=== PATIENT | female | born 1990 | race Caucasian/White ===

== ENCOUNTER 2017-07-14 09:30 | Emergency (ER) | payer OTHER ==
[2017-07-14 09:33] VITALS: PULSE 117; RESP 18; O2SAT 98; BMI 30.2
--- NOTE | 2017-07-14 10:58 | C.PDOC ---
Time Seen by Provider: 07/14/17 10:04 Chief Complaint (Nursing): Cough, Cold, Congestion History Per: Patient, Family Onset/Duration Of Symptoms: Days (4) Current Symptoms Are (Timing): Still Present Associated Symptoms: Fever, Sore Throat, Cough (mild), Nasal Congestion Severity: Moderate Recent travel outside of the [place]: No Additional History Per: Prior Records Past Medical History Reviewed: Historical Data, Nursing Documentation, Vital Signs Vital Signs: Last Vital Signs Temp 97.7 F 07/14/17 09:33 Pulse 117 H 07/14/17 09:33 Resp 18 07/14/17 09:33 BP 114/81 07/14/17 09:33 Pulse Ox 98 07/14/17 09:33 - Medical History PMH: No Chronic Diseases Other PMH: Pt is 21 weeks Family History: States: Unknown Family Hx - Social History Hx Tobacco Use: No Hx Alcohol Use: No Hx Substance Use: No - Immunization History Hx Tetanus Toxoid Vaccination: No Hx Influenza Vaccination: No Hx Pneumococcal Vaccination: No Review Of Systems Except As Marked, All Systems Reviewed And Found Negative. Constitutional: Positive for: Fever, Malaise ENT: Positive for: Nose Congestion, Throat Pain Cardiovascular: Negative for: Chest Pain Respiratory: Negative for: Shortness of Breath, Hemoptysis Genitourinary: Positive for: Pelvic Pain (on/off). Negative for: Dysuria, Vaginal Bleeding Musculoskeletal: Negative for: Neck Pain Skin: Negative for: Rash Neurological: Negative for: Weakness, Numbness, Seizures, Altered Mental Status Physical Exam - Physical Exam Appears: Non-toxic, No Acute Distress Skin: Normal Color, Warm, Dry, No Rash Head: Atraumatic, Normacephalic Eye(s): bilateral: Normal Inspection, PERRL, EOMI Ear(s): Bilateral: Normal Oral Mucosa: Moist, No Drooling, No Trismus Throat: Erythema, No Exudate, No Drooling, No Mass Neck: Normal ROM, Supple Lymphatic: No Adenopathy Cardiovascular: Rhythm Regular Respiratory: Normal Breath Sounds, No Accessory Muscle Use Gastrointestinal/Abdominal: Soft, No Tenderness, Other (Gravid) Back: No CVA Tenderness Extremity: Normal ROM Neurological/Psych: Oriented x3, Normal Speech, Normal Motor, Normal Sensation ED Course And Treatment O2 Sat by Pulse Oximetry: 98 Pulse Ox Interpretation: Normal Progress Note: Pt was seen at [facility] [place] 4 days ago and have unremarkable labs. Pt is concerned about her . Pt will be transferred to L&D. Reassessment Condition: Improved Disposition Counseled Patient/Family Regarding: Studies Performed, Diagnosis, Need For Followup - Disposition Disposition Time: 10:59 Condition: STABLE Additional Instructions: You are being transferred to L&D for further evaluation and treatment. Instructions: Upper Respiratory Infection (ED) - Clinical Impression Clinical Impression: Upper respiratory infection, with 21 completed weeks gestation
--- NOTE | 2017-07-14 13:56 | US ---
PROCEDURE: OB Pelvic Ultrasound HISTORY: confirm intrauterine COMPARISON: None available. FINDINGS: UTERUS: Within the endometrial cavity is a well-established pole with yolk sac not appreciable at this stage of gestation. Placenta appears anterior and fundal with no placental abruption or previa identified at this time. Internal cervical os is closed with the cervix measuring 4.1 cm. cardiac activity is were identified measuring up to 155 beats per minute. anatomical survey appears limited within direct three-vessel umbilical cord identified. Urinary bladder is identified. Abdominal umbilical cord insertion appears normal. No gross hydrocephalus. Full view of the sacrum is limited with the cervical thoracic and lumbar spine appearing grossly intact as imaged. The following mean biometry was obtained: BPD: 5.4 cm corresponds to 22 weeks 4 days. HC: 20 cm corresponds to 22 weeks 1 day. AC: 16.7 cm corresponds to 21 weeks 5 days. FL: 3.7 cm corresponds to 22 weeks 6 days. Ultrasound age estimate is 22 weeks 1 day compared to 21 weeks 5 days based on prior last menstrual period 02/12/2017. Gestational sac: Single intrauterine gestation. Niesha-gestational hemorrhage: None apparent. Date of delivery (Ultrasound estimated) : 11/16/2017. Estimate weight 458.71 g. Myometrium appears grossly nonfocal as imaged. CERVIX: Long and closed. No cervical abnormality seen. RIGHT OVARY: Not identified. LEFT OVARY: Not identified. FREE FLUID: None. OTHER FINDINGS: None. IMPRESSION: A single viable intrauterine gestation is identified in cephalic lie with average ultrasonic age of 22 weeks 1 day which is concordant with LMP derived dates as per above. Limited anatomical survey in part due to lie. Consider follow-up elective ultrasound if clinically warranted.
--- NOTE | 2017-07-14 15:34 | OBHP ---
Datetime: 07/14/2017 12:28 IP Adm Impression: , intrauterine IP Chief Complaint Other: Fever, 5 days Admit Comment, IP Provider: 26 y/o G1PO with no significant past medical history presents with a 5 d ay duration of fever, with T max of 101.4 ( 2 days ago ). Patient was afebrile on visit to ED. Lizbeth t states that she usually feels the fetus moving 2 times a day, but today she has not felt the baby m ove. Last movement was last night. [place] [facility], where a work up was done for fever including rapid flu, cbc, cm p, and ekg, all of which were normal. Patient established care at [address] [place] [address], and had an ult rasound performed in the first week of June. P Ob: Primip P GRINDER HAND: 15 x monthly x 7 days before starting contraceptives, 5 days now; no H/O STIs; states no pap smear. PMH: denies PSH: denies NKDA Meds: PNV - QD Soc Hx: denies tobacco, illicit drug por EtOH use. x 3 years Work - currently unemployed Fam Hx: Mother alive, 45, Father alive, 52, HTN A/P : 26 Y.o P0, 21w 5d by LMP, viral syndrome/URI. Currently afebrile. FHR auscualtated in E.D. a t 120 bpm. Clinically stable. Patitent counseled to Increase p.o. intake of fluids, tylenol PRN. and to keep next appointment. Rapid Strep ordered- negative, OB Ultrasound ordered - pending re sults. Plan 1) Anticipate discharge home 2) Counseled patient to take tylenol prn, Roxie pot prn, Robitussin prn, Claritin daily for sympto ms, and to increase fluid intake 3) Keep next appointment on July 27, 2017 Extremities - PN: Normal Abdomen - PN: Normal Back - PN: Normal Breast - PN: Normal Lungs - PN: Normal Heart - PN: Normal Thyroid - PN: Normal Neurologic - PN: Normal HEENT - PN: Normal General - PN: Normal Gestation - Est Wks by US: 21.0 EGA AdmitDate IP: 21.4 Vital Signs Provider: Reviewed; Within Normal Limits IP Chief Complaint: Decreased movement; Illness Dilatation, Provider: deferred Genitourinary Exam: Normal DTRs - PN: Normal
[2017-07-14 19:24] VITALS: BP 116/72; TEMP 98.2
--- NOTE | 2017-07-14 23:48 | OBHP ---
Datetime: 07/14/2017 12:28 IP Admit Plan: Discharge home Admit Comment, IP Provider: 26 y/o G1PO with no significant past medical history presents with a 5 d ay duration of fever, with T max of 101.4 ( 2 days ago ). Patient was afebrile on visit to ED. Lizbeth t states that she usually feels the fetus moving 2 times a day, but today she has not felt the baby m ove. Last movement was last night. Patient was seen at [facility] [place] on 07/10, where a work up was done for fever including rapid flu, cbc, cm p, and ekg, all of which were normal. Patient established care at [address] [place] [address], and had an ult rasound performed in the first week of June. P Ob: Primip P DOCTOR OF [facility]SE [facility]ESTH[facility]IA PRACTICE: 15 x monthly x 7 days before starting contraceptives, 5 days now; no H/O STIs; states no pap smear. PMH: denies PSH: denies NKDA Meds: PNV - QD Soc Hx: denies tobacco, illicit drug or EtOH use. x 3 years. Currently unemployed Fam Hx: Mother alive, 45, Father alive, 52, HTN A/P : 26 Y.o P0, 21w 5d by LMP, viral syndrome/URI. Currently afebrile. FHR auscualtated in E.D. a t 120 bpm. IN E.D., Rapid Strep ordered- negative, OB Ultrasound ordered - pending results. Plan 1) Anticipate discharge home 2) Counseled patient to take tylenol prn, Roxie pot prn, Robitussin prn, Claritin daily for sympto ms, and to increase fluid intake 3) Keep next appointment on July 27, [address] Ricardo George, DO PGY - 1 Attending Note: patient was seen by me withthe Resident. I agree withthe above as diescribed. Itz tionally, patient counseled to increase p.o. intake of fluids, tylenol PRN. and to keep next appointment. Ultrasound images reviewed by me personally: SUSIE 22w 1d; grossly normal amnionic fluid volume. (+) cardiac motionand movement - this was discussed with patient. Clinically stable. Plan: 1) Discharge home, as above. FHR - Baseline A Provider: 120 EGA AdmitDate IP: 21.4
== END 2017-07-14 13:22 | disposition home or self-care (01) ==
LOC: C.EROB 09:30 → C.ER 11:20 → C.EROB 11:20
DX: O26.892 Other specified pregnancy related conditions, second trimester (principal); J06.9 Acute upper respiratory infection, unspecified; Z3A.21 21 weeks gestation of pregnancy